=== PATIENT | female | born 1985 | race Caucasian/White ===

== ENCOUNTER 2020-03-26 12:56 | Outpatient (CLI) | payer MEDICAID, SELFPAY ==
--- NOTE | 2020-03-26 13:00 | MR_ITS ---
WS: [id number] INDICATION: Retained foreign body TECHNIQUE: MR of the left foot without and with gadolinium enhancement. Multiplanar and multisequence pre and post gadolinium imaging with fat saturation technique. FINDINGS: Vitamin E marker on the plantar aspect of the foot in the area of concern. No evidence of d rainable abscess or fluid collection in this area. Mild subcutaneous fat prominence in this area but no evidence of underlying mass or lesion. No susceptibility artifact indicating foreign body. No abno rmal gadolinium enhancement. Tiny amount of edema and enhancement in the intertarsal soft tissues between the third and fourth met atarsal may be posttraumatic or inflammatory. This is at the head of the metatarsals. Normal bone marrow signal. 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 Distal Achilles is normal in appearance. Normal peroneal tendons. Normal flexor and extensor c ompartment tendons. Tiny ankle effusion. No other significant findings. MR/MR foot LT wo/w con [id number] IMPRESSION: 1. No evidence of subcutaneous mass or lesion in the area of concern along the plantar aspect of the foot. 2. Slight protuberance plantar subcutaneous fat in the area of concern althoug h no evidence of susceptibility artifact to indicate foreign body. 3. No evidence of drainable abscess or fluid collection. 4. Tiny amount of edema and enhancement in the intertarsal soft tissues betwee n the third and fourth metatarsal may be posttraumatic or inflammatory. This is at the head of the metatarsals.
== END 2020-03-26 12:57 | disposition home or self-care (01) ==
LOC: RADWPI 12:58
PROVIDERS: Family Provider Family Medicine; PCP Family Medicine; Visit Provider Podiatrist Foot & Ankle Surgery
DX: Z18.9 Retained foreign body fragments, unspecified material (principal); R60.9 Edema, unspecified
CPT/HCPCS: 73720; A9579

== ENCOUNTER 2020-06-08 19:46 | Emergency (ER) | payer MEDICAID, SELFPAY ==
--- NOTE | 2020-06-08 19:49 | XRR_ITS ---
PROCEDURE INFORMATION: Exam: XR Chest, 2 Views Exam date and time: 06/08/2020 8:06 PM Age: 35 years old Clinical indication: Cough; Additional info: SOB TECHNIQUE: Imaging protocol: XR of the chest Views: 2 views. COMPARISON: CR Chest 1 [place] [id number] 10/20/2016 8:33 PM FINDINGS: Lungs: Unremarkable. No consolidation. Pleural space: Unremarkable. No pleural effusion. No pneumothorax. Heart/Mediastinum: Unremarkable. No cardiomegaly. Bones/joints: Unremarkable. XR/XR chest 2V* [id number] IMPRESSION: No acute findings.
[2020-06-08 20:06] VITALS: BP 119/79; PULSE 92; RESP 16; TEMP 36.3; O2SAT 100; BMI 32.1
--- NOTE | 2020-06-08 21:36 | ED_ITS ---
HPI - URI/Sore Throat General: Chief Complaint: Upper Respiratory Infection Stated Complaint: sob/dizzy Time Seen by Provider: 06/08/20 21:31 Source: patient Mode of arrival: ambulatory Limitations: no limitations History of Present Illness: HPI Narrative: Patient is a 35-year-old female who presents to ED today with a complaint of throat tightness. Patient states over the past 3 days she has felt like she has swelling in her throat. The patient is still able to swallow, speak normally, eat/drink, and control her secretions. She has been treating with Benadryl without relief. She does have positive COVID exposure. She is not complaining of fevers. She does have a mild nonproductive cough. Patient states she will sometimes begin to feel better but reports after eating or speaking she will get symptoms again. MD elicited complaint: other (throat tightness) Consistency: constant and intermittent Able to tolerate fluids by mouth: Yes Exacerbating factors: nothing Relieving factors: nothing Associated symptoms: Deny abdominal pain, chills, chest pain, diarrhea, epistaxis, ear or mastoid pain, fever(s), headache(s), nasal congestion, nausea, sinus pain or vomiting Treatments prior to arrival: other (benadryl) Review of Systems Const: Denies: fever(s), chills, body aches, fatigue or malaise Eyes: Denies: change in vision, blurry vision, photophobia, floaters or seeing flashes ENMT: Denies: throat pain, uvular edema, enlarged tonsils, odynophagia, mouth pain, swelling of lips/tongue, oral sores, dental pain, dry mouth, ear or mastoid pain, ear discharge, tinnitus, nasal discharge, nasal congestion, epistaxis, post nasal drip or sinus pain Card: Denies: chest pain, palpitations or swelling of feet/ankles Resp: Reports: non-productive cough; Denies: dyspnea, productive cough, wheezing, pain on inspiration, change in phlegm color, hemoptysis or chest congestion GI: Denies: abdominal pain, nausea, vomiting or diarrhea : Denies: flank pain, difficulty voiding, dysuria, urinary frequency or urinary urgency Musc: Denies: neck pain or back pain Skin/Breast: Denies: rash Neuro: Denies: headache(s), numbness in extremities, weakness in extremities, sensory changes or dizziness PFSH ED PFSH: Surgical History History of Social History Smoking and tobacco status: never smoked Alcohol intake: never Physical Exam Const: COMMON NORMALS: no acute distress, average body habitus, patient oriented x3, no limitations, healthy appearing, alert and well nourished HENMT: COMMON NORMALS: normocephalic, atraumatic, hearing grossly normal bilaterally, external ears normal, EAC's normal, TM's normal bilaterally, Normal external nose present, Normal nasal mucous membranes and turbinates present, moist oral mucous membranes, oropharynx normal, dentition normal and gingiva normal HEAD & SCALP: normal to inspection, normocephalic and atraumatic FACE & SINUS: normal facial exam NOSE: Normal external nose present and Normal nasal mucous membranes and turbinates present EXTERNAL EAR: Yes external ears normal EXTERNAL AUDITORY CANAL: EAC's normal TYMPANIC MEMBRANE: TM's normal bilaterally MOUTH: Normal oral and palatal mucosa present, lip normal, tongue normal and Normal salivary glands and ducts present THROAT: posterior oropharynx normal, tonsils normal and uvula midline; no uvular edema Eye: COMMON NORMALS: Equal, round and reactive pupils present, EOMs intact bilaterally, conjunctivae normal and no scleral icterus GENERAL EYE: appearance normal, both eyes and all related structures CONJUNCTIVA: Yes conjunctivae normal PUPIL: Yes Equal, round and reactive pupils present Neck/C-Spine: COMMON NORMALS: full ROM, no lymphadenopathy and no meningeal signs CERVICAL SPINE: Yes cervical ROM normal, No pain with cervical ROM and No Cervical spine tenderness Neuro: COMMON NORMALS: patient oriented x3 SENSORIUM/ORIENTATION: Yes alert MENINGEAL SIGNS: Yes no meningeal signs Skin: COMMON NORMALS: no rashes or lesions noted GENERAL SKIN EXAM: no rashes or lesions noted Course Vital Signs: Vital signs: Vital Signs Temperature 98.0 F 06/09/20 00:04 Pulse Rate 70 06/09/20 00:04 Respiratory Rate 18 06/09/20 00:04 Blood Pressure 126/84 06/09/20 00:04 Pulse Oximetry 99 06/09/20 00:04 MDM - URI/Sore Throat MDM Narrative: Medical decision making narrative: Patient with normal physical examination. Try treating with IM dexamethasone without relief. She is in no acute distress but seems very concerned regarding her symptoms. Discussed CT imaging which patient would like to proceed with. This was negative. Recommend close observation of her symptoms at home and returning to the emergency department for worsening symptoms. We did go ahead and test her for COVID. Imaging Data^: CXR: Radiologist's impression: [address] [place] [address] XRay Report Signed Patient: Libertad Hermosillo Unit #: [id number] : 1985 Age/Sex: 35 / F ADM Date: 06/08/20 Loc: ER Room/Bed: Attending Dr: Ordering Provider/Ordering MD: Ysabel Brown MD Date of Service: 06/08/20 Procedure(s): XR chest 2V* [id number] Accession Number(s): [id number] Report Number: [id number] PROCEDURE INFORMATION: Exam: XR Chest, 2 Views Exam date and time: 06/08/2020 8:06 PM Age: 35 years old Clinical indication: Cough; Additional info: SOB TECHNIQUE: Imaging protocol: XR of the chest Views: 2 views. COMPARISON: CR Chest 1 [place] [id number] 10/20/2016 8:33 PM FINDINGS: Lungs: Unremarkable. No consolidation. Pleural space: Unremarkable. No pleural effusion. No pneumothorax. Heart/Mediastinum: Unremarkable. No cardiomegaly. Bones/joints: Unremarkable. XR/XR chest 2V* [id number] IMPRESSION: No acute findings. Dictated By: Angelito Toledo Signed By: Angelito Toledo Signed Date/Time: 06/08/202023 DD/ 21 CT neck : Radiologist's impression: [address] [place] [address] CT Scan Report Signed Patient: Libertad Hermosillo Unit #: [id number] : 1985 Age/Sex: 35 / F ADM Date: 06/08/20 Loc: ER Room/Bed: Attending Dr: Ordering Provider/Ordering MD: Clari Chan Date of Service: 06/08/20 Procedure(s): CT neck w con* [id number] Accession Number(s): [id number] Report Number: [id number] PROCEDURE INFORMATION: Exam: CT Neck With Contrast Exam date and time: 06/08/2020 10:46 PM Age: 35 years old Clinical indication: Painful swallowing; Additional info: Trouble swallowing/breathing TECHNIQUE: Imaging protocol: Computed tomography images of the neck with intravenous contrast. Radiation optimization: All CT scans at this facility use at least one of these dose optimization techniques: automated exposure control; mA and/or kV adjustment per patient size (includes targeted exams where dose is matched to clinical indication); or iterative reconstruction. Contrast material: OMNI 300; Contrast volume: 95 ml; Contrast route: INTRAVENOUS (IV); COMPARISON: CT Cervical Spine wo* [id number] 10/20/2016 9:09 PM RADIATION DOSE METRICS: Total DLP (mGy-cm): 536 FINDINGS: Nasopharynx: Unremarkable. Oropharynx: Unremarkable. No significant tonsillar enlargement. Hypopharynx: Unremarkable. Larynx: Unremarkable. Normal epiglottis. Retropharyngeal space: Unremarkable. Submandibular/Parotid glands: Normal. Glands are normal in size. Thyroid: Normal. No enlarged or calcified nodules. Lymph nodes: Unremarkable. No lymphadenopathy. Trachea: Visualized trachea is unremarkable. Lungs: Unremarkable as visualized. Bones/joints: Unremarkable. No acute fracture. Soft tissues: Unremarkable. No significant soft tissue swelling. CT/CT neck w con* [id number] IMPRESSION: Negative for acute appearing abnormality. Radiation Dose CTDIVOL = (mGy): DLP = 536 (mGy-cm) Dictated By: Jose Esquivel MD Signed By: Jose Esquivel MD Signed Date/Time: 06/08/202348 DD/ 46 Discharge Plan Discharge Patient Disposition: Home Clinical Impression: Throat irritation Condition: Stable Prescriptions: No Action No Known Home Medications RF: 0 Discharge Orders: Discharge Order (Routine); Ordered 06/09/20 Ordered By: Clari Chan Referrals: Brook James DO [Primary Care Provider] - Discharge Date/Time: 06/09/20 00:13 Coding Level of Care Code ED Jalousies Installer for Chg Fwd Exam Detailed
[2020-06-08] MEDS: dexamethasone 10 mg/mL INJ 8 MG IM (21:56)
--- NOTE | 2020-06-08 22:37 | CTR_ITS ---
PROCEDURE INFORMATION: Exam: CT Neck With Contrast Exam date and time: 06/08/2020 10:46 PM Age: 35 years old Clinical indication: Painful swallowing; Additional info: Trouble swallowing/breathing TECHNIQUE: Imaging protocol: Computed tomography images of the neck with intravenous contrast. Radiation optimization: All CT scans at this facility use at least one of these dose optimization techniques: automated exposure control; mA and/or kV adjustment per patient size (includes targeted exams where dose is matched to clinical indication); or iterative reconstruction. Contrast material: OMNI 300; Contrast volume: 95 ml; Contrast route: INTRAVENOUS (IV); COMPARISON: CT Cervical Spine wo* [id number] 10/20/2016 9:09 PM RADIATION DOSE METRICS: Total DLP (mGy-cm): 536 FINDINGS: Nasopharynx: Unremarkable. Oropharynx: Unremarkable. No significant tonsillar enlargement. Hypopharynx: Unremarkable. Larynx: Unremarkable. Normal epiglottis. Retropharyngeal space: Unremarkable. Submandibular/Parotid glands: Normal. Glands are normal in size. Thyroid: Normal. No enlarged or calcified nodules. Lymph nodes: Unremarkable. No lymphadenopathy. Trachea: Visualized trachea is unremarkable. Lungs: Unremarkable as visualized. Bones/joints: Unremarkable. No acute fracture. Soft tissues: Unremarkable. No significant soft tissue swelling. CT/CT neck w con* [id number] IMPRESSION: Negative for acute appearing abnormality. Radiation Dose CTDIVOL = (mGy): DLP = 536 (mGy-cm)
[2020-06-08] MEDS: iohexol 300 mg/mL 100 mL Btl IV (23:06)
[2020-06-09 00:04] VITALS: BP 126/84; PULSE 70; RESP 18; TEMP 36.7; O2SAT 99
[2020-06-11 11:07] LABS: Quest SARS-CoV-2 RNA NOT DETECTED (NOT DETECTED)
== END 2020-06-09 00:13 | disposition home or self-care (01) ==
PROVIDERS: Emergency Provider Physician Assistant; PCP Family Medicine
DX: R07.0 Pain in throat (principal)
CPT/HCPCS: 12345; 70491; 71046; 87635; 96372; 99283; J1100; Q9967

== ENCOUNTER 2023-05-29 11:40 | Outpatient (CLI) | payer BC, MEDICAID, SELFPAY ==
--- NOTE | 2023-05-29 12:00 | USCV_ITS ---
Libertad Hermosillo Age: 38 Gender: F : 1985 Exam Date: 05/29/2023 12:35 Ordering Phys: Marquis Duong MD (Andy) ([email or web address] [place]) Technologist: PEDRO [place] [facility] [place]: HISTORY: PROCEDURES: FINDINGS: The veins were found to be easily compressible with spontaneous blood flow. Non pulsatile flow pattern. On the right side, the proximal segment of the small saphenous vein was found to have a reflux of 2.7 seconds. The segment was measuring 0.35 cm in diameter and was at a depth of 1.6 cm No other refluxes were noted either in the superficial or deep veins on either side CONCLUSIONS 1. No evidence of DVT in the above-mentioned identifiable veins. 2. Significant venous reflux of greater than 500 ms was noted at the proximal segment of the small saphenous vein on the right side. The venous dimension, depth from the surface and the reflux time are as mentioned above Dr Irish Vergara MD [facility] (Electronically Signed) Final Date: 29 May 2023 18:04 S
== END 2023-05-29 11:41 | disposition home or self-care (01) ==
PROVIDERS: PCP Family Medicine; Visit Provider Thoracic Surgery (Cardiothoracic Vascular Surgery)
DX: I83.90 Asymptomatic varicose veins of unspecified lower extremity (principal); I87.2 Venous insufficiency (chronic) (peripheral)
CPT/HCPCS: 93970

== ENCOUNTER 2023-07-28 05:59 | Day surgery (SDC) | payer BC, MEDICAID, SELFPAY ==
[2023-07-28 06:09] VITALS: BMI 33.0
[2023-07-28 06:13] VITALS: BP 117/76; PULSE 84; RESP 16; TEMP 36.4; O2SAT 100
--- NOTE | 2023-07-28 06:23 | USCV_ITS ---
Libertad Hermosillo Age: 38 Gender: F : 1985 Exam Date: 07/28/2023 07:02 Ordering Phys: Marquis Duong MD (Andy) ([email or web address]) Technologist: Eric Rivera Exam Location: [facility] [place] Indication: RT LESSER SAPH ACCESSED PROCEDURES: ACCESSED AND GUIDED LESSER SAPH ABLATION FINDINGS: Ablation catheter was located the small saphenous vein on the right side. Post ablation duplex lamination revealed sluggish flow in the small saphenous vein CONCLUSIONS 1. Ablation catheter was located in the small saphenous vein. 2. Post ablation duplex examination revealed sluggish flow in the small saphenous vein Dr Irish Vergara MD [facility] (Electronically Signed) Final Date: 29 July 2023 21:16 S
--- NOTE | 2023-07-28 06:29 | W.PM.OPSUD ---
Surgery/Procedure H&P Update DATE OF PROCEDURE: July 28, 2023 DATE H&P PERFORMED: 07/02/23 H&P UPDATE INFORMATION: I have reviewed H&P completed within last 30 days, I have examined patient prior to procedure and No changes to prior documentation CHANGES TO PREVIOUS DOCUMENTATION: Details and risks of procedure were again carefully discussed with Ms. Hermosillo and her . I discussed that potential benefits may not be apparent for several weeks or that no improvement may result given her active lifestyle and occupation with inability to wear long-term compression. They wish to proceed. PREOP DIAGNOSIS: right lessor saphenous vein reflux PRIMARY INDICATION FOR PROCEDURE: Painful and enlarged isolated varicosities to the posterior aspect of the right leg PLANNED PROCEDURE: Operation Date: 07/28/23 07:00 Proposed Procedures p Venous [id number](Right) - Marquis Duong MD
[2023-07-28] MEDS: lidocaine 2% INJ 20 mL INJECTION (07:50)
--- NOTE | 2023-07-28 08:17 | P.OP_ITS ---
Operative Report Date of procedure: July 28, 2023 Pre-op diagnosis: Symptomatic venous reflux right small saphenous vein Post-op diagnosis: same Procedure done: Radiofrequency catheter ablation of the right small saphenous vein Pathology: none sent Surgeon: Marquis Duong Surgeon: Marquis Duong MD Anesthesia: Local Estimated blood loss (mL): 5 Complications: None Condition: stable Disposition: same day Brief History: Ms. 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 She has had symptomatic varicosities involving the lateral aspects of right and left legs, with clearly greater symptoms on the right side. No history for trauma or DVT. She underwent venous duplex ultrasound with reflux provocation which revealed a greater saphenous vein system did not demonstrate pathologic reflux though there was substantial reflux of over 2 seconds in the right small saphenous vein which did involve an area of clusters of varicosities to the lateral aspect of that leg. RF catheter ablation was offered an attempt to improve her symptomatology. Details of risk the procedure were carefully discussed. Appropriate consents have been reviewed and signed. Procedure: The insufficient right small saphenous vein was verified by ultrasound and diagrammed on the overlying skin. The varicose tributary veins and suitable access sites were identified and mapped. Ms. Hermosillo was placed in the prone position allow for adequate visualization throughout the course of the right small saphenous vein. Appropriate leg had been previously marked and verified. Timeout was completed by all surgical team members present and confirmed. The affected right leg prepped and draped in the usual sterile fashion. The patient was placed in reverse Trendelenburg position. Tumescent was instilled in the skin overlying the access site for local anesthesia. The vein was accessed in the mid distal right leg posteriorly using ultrasound guidance and the Seldinger technique, a guidewire was introduced through the needle, which was then exchanged over the guidewire for a 7F sheath. The RF catheter was placed on the sterile field, flushed and wiped down, prepared, and connected by a sterile cable. The patient was placed in Trendelenburg position. After RF catheter position was verified by ultrasound, tumescent anesthesia was infiltrated, under ultrasound guidance, precisely into the perivenous compartment along the entire length of vein. After the RF catheter position was again confirmed with ultrasound imaging, and under direct external compression along the length of the heating element, RF energy was applied. The vein was segmentally ablated until the treatment length is completed. Device temperature was maintained at 120 +/- degrees C with an initial power level of 40W dropping to below 12W for each treatment. Total vein length treated = 10 cm. Total cycles of RF= 4. Time 1 minute and 20 seconds. Repeat ultrasound of the right small saphenous vein was performed, confirming successful treatment. The catheter and sheath were withdrawn and hemostasis established with direct pressure. After assuring hemostasis, the skin incision over the saphenous vein was closed with a bandage and graduated compression stocking(s) was applied from the level of the foot to the distal length of the right thigh.
[2023-07-28 08:18] VITALS: BP 112/61; PULSE 80; RESP 16; TEMP 36.7; O2SAT 99
== END 2023-07-28 08:28 | disposition home or self-care (01) ==
PROVIDERS: PCP Family Medicine; Visit Provider Thoracic Surgery (Cardiothoracic Vascular Surgery)
PROC: (CPT 36475; principal; 2023-07-28 07:00)
DX: I83.891 Varicose veins of right lower extremity with other complications (principal)
CPT/HCPCS: 36475; C1887; J7040

== ENCOUNTER 2023-08-04 06:15 | Outpatient (CLI) | payer BC, MEDICAID, SELFPAY ==
--- NOTE | 2023-08-04 06:15 | USCV_ITS ---
Libertad Hermosillo Age: 38 Gender: F : 1985 Exam Date: 08/04/2023 06:24 Ordering Phys: Marquis Duong [email or web address] Technologist: ANKUSH [place] [facility] [place]ication: S/P RIGHT LSV ABLATION X1WK AGO HISTORY: S/P Right LSV ablation PROCEDURES: Venous duplex imaging was performed in only the right lower extremity. The following venous structures were evaluated: common femoral vein, profunda vein, proximal portion of the greater saphenous vein, superficial femoral vein, and the popliteal vein. In addition, the posterior tibial and peroneal trunk were evaluated. Serial compression, augmentation maneuvers, and spectral Doppler flow evaluation were performed. FINDINGS: No evidence of DVT seen in any vessel visualized at this time. Right LSV compressible 0.9cm from Pop Jx CONCLUSIONS No evidence of right lower extremity DVT. Right LSV compressible 0.9cm from Pop Jx Matt Craig MD (Electronically Signed) Final Date: 04 August 2023 09:05 S
== END 2023-08-04 06:16 | disposition home or self-care (01) ==
LOC: RAD 06:15
PROVIDERS: PCP Family Medicine; Visit Provider Thoracic Surgery (Cardiothoracic Vascular Surgery)
DX: I83.91 Asymptomatic varicose veins of right lower extremity (principal)
CPT/HCPCS: 93971